=== PATIENT | female | born 1995 | race Caucasian/White ===

== ENCOUNTER 2023-04-09 00:15 | Day surgery (SDC) | payer BC, SELFPAY ==
[2023-04-02 13:45] VITALS: BMI 36.4
--- NOTE | 2023-04-02 14:10 | SUR.PREOP ---
Report to the Outpatient Waiting Room, entrance under the green pavilion located off [facility], at time 1115 on date 04/09/23. Planned Procedure Time: 1315. Time changes happen often and if your time is changed the preop area will call you the afternoon before. - You and your visitor will be asked to self-screen and do not enter if you have any COVID symptoms. - A mask is optional within the hospital at this time. Patients may have clear liquids (water, carbonated beverages, clear teas, apple juice) until 3 hours prior to surgery with a maximum of 20 ounces- 1015. - No food from midnight until time of surgery - Infants may have breast milk until 4 hours before surgery, formula 6 hours prior to surgery. - Children will be allowed to drink immediately following surgery. If applicable, please bring a bottle or sippy cup to assist with drinking. Juice, water, soda, and popsicles are readily available. For infants on formula, please bring formula the day of surgery. Pacifiers are allowed. Take the following medications with a SIP of water the morning of surgery: Zyprexa, Lorazepam PRN, Albuterol PRN DO NOT STOP ANY OF YOUR OTHER PRESCRIPTION MEDICATIONS PRIOR TO SURGERY ?EXCEPT THE FOLLOWING Medications to discontinue per physician N/A Please no make-up, nail estonian, hairspray, perfume, deodorant, or body powder the day of surgery. No jewelry (including any body piercings) or valuables the day of surgery, leave them at home. Please take a shower or bath the night before, or the morning of, surgery with an antibacterial soap. Wear comfortable, loose fitting clothing. Children are encouraged to wear pajamas. - Jewelry must be removed prior to entering the operating room. Rings and piercings that are not removed may be cut off. - The hospital will not accept responsibility for valuables. - Please leave all valuables, including medications, at home the day of surgery. If you are going home after surgery, a licensed charter and tour bus driver must drive you home. - NO public transportation without another adult if you receive anesthesia. - We recommend that an adult stay with you for 24 hours following discharge. - We also recommend that you do not drive, make important decision, drink alcoholic beverages, or take any drugs that were not prescribed by your health care provider for at least 24 hours after your discharge time. For Pediatric surgeries, we recommend two adults accompany the child home. Follow any additional instructions given to you from your surgeon. If you or anyone in your household have experienced Covid symptoms in the past week, please notify your surgeon or the nurse liaison at the phone number below for possible testing. Telephone instructions given to ____patient- Ariel and asked if any additional questions and then verbalized understanding. Patient advised to call surgeon office or pre surgery nurse liaison [phone] if any additional questions.
[2023-04-09] VITALS (11 sets, daily range): BP systolic 104–121; BP diastolic 52–85; PULSE 62–122; RESP 14–20; TEMP 36.1–36.2; O2SAT 95–100
--- NOTE | 2023-04-09 07:49 | WPDANESEPPF ---
Anes - Initial Pre Proc Eval Procedure: Operation Date: 04/09/23 13:15 Proposed Procedures p Diagnostic Laparoscopy with Bilateral Salpingectomy - Senait Marcelino DO Date/Time: 04/09/23 07:49 Surgeon: Senait Marcelino DO Pre Op Diagnosis: Desires Surgical Steritlity Patient Data Age: 27 Gender: F Height: 1.5 m Weight: 81.8 kg Allergies Allergy/AdvReac Type Severity Reaction Status Date / Time ibuprofen Allergy Severe Swelling Verified 04/09/23 11:30 of Lip/Tongue/Throat sumatriptan [From Imitrex] AdvReac Severe Other Verified 04/09/23 11:30 fentanyl AdvReac Unknown Hypotension Verified 04/09/23 11:30 Home Medications Medication Instructions Recorded Confirmed Type albuterol 90 mcg/actuation aerosol 90 mcg inhalation QID PRN Asthma 04/02/23 04/09/23 History inhaler exacerbation lorazepam 1 mg tablet 1 mg PO PRN PRN Anxiety 04/02/23 04/02/23 History olanzapine 5 mg tablet (Zyprexa) 30 mg PO DAILY 04/02/23 04/02/23 History Patient hx anesthesia problems: none Family hx anesthesia problems: none Results Review: All pre-operative results and documents have been reviewed as part of the pre-operative evaluation. [facility] Past Medical History Medical History (Updated 04/09/23 @ 07:49 by Jeff Priest DO) Anxiety Asthma Bipolar disorder Pancreatitis PTSD (post-traumatic stress disorder) Social History Social History Smoking packs per day: 1 Smoking cigarettes per day: 20.0 Years smoked: 10 Smoking pack-years: 10.00 Smoking status: Current every day smoker Tobacco type: e-cigarettes/vaping Alcohol intake: current Alcohol use details: very infrequently Substance use: former Substance use type: marijuana Living arrangements: with family Spiritual care concerns: No Anes - Eval Final PreProcedure Day of Procedure 04/09/23 07:49 Patient weight: obese Heart: regular rate and rhythm Lungs: clear to auscultation Airway: Mallampati scale class II and special considerations poor dentition Neurological: alert and oriented Last oral intake: >/= 8 hours ASA classification: III Emergent: no Anesthetic plan: proceed Anesthesia type and monitoring: general ETT and standard monitoring Results Review: All pre-operative results and documents have been reviewed as part of the pre-operative evaluation. Informed Consent: The patient's anesthetic plan and its attendant risks and benefits were discussed with the patient/family/POA. Questions were solicited and answers provided to the satisfaction of the patient/family/POA.
[2023-04-09] MEDS: ACETAMINOPHEN 500 MG TABLET 1000 MG PO (11:35)
[2023-04-09] MEDS: GABAPENTIN 300 MG CAPSULE PO (11:35)
[2023-04-09] MEDS: LACTATED RINGERS 1,000 ML 30 ML IV CONT ×2 (11:56→15:51)
--- NOTE | 2023-04-09 13:48 | WPDHPUPDATE1 ---
History and Physical Update Update Date/Time: 04/09/23 13:48 History and Physical has been reviewed, including an updated exam of the patient. There are NO changes in the patient's condition. Risks, benefits, and alternatives have been discussed and questions answered. Patient agrees to proceed with procedure.
--- NOTE | 2023-04-09 13:48 | PM.IMHP ---
H&P: HPI History of Present Illness Date/Time: 04/09/23 13:48 Chief Complaint: I'm having my tubes out Review of Systems Review of Systems: All systems reviewed & are unremarkable except as noted in HPI and below [facility] Past Medical History Medical History (Updated 04/09/23 @ 13:49 by Senait Marcelino DO) Anxiety Asthma Bipolar disorder Pancreatitis PTSD (post-traumatic stress disorder) Social History Social History Smoking packs per day: 1 Smoking cigarettes per day: 20.0 Years smoked: 10 Smoking pack-years: 10.00 Smoking status: Current every day smoker Tobacco type: e-cigarettes/vaping Alcohol intake: current Alcohol use details: very infrequently Substance use: former Substance use type: marijuana Living arrangements: with family Spiritual care concerns: No Meds Home Medications and Allergies Home Medications Medication Instructions Recorded Confirmed Type albuterol 90 mcg/actuation aerosol 90 mcg inhalation QID PRN Asthma 04/02/23 04/09/23 History inhaler exacerbation lorazepam 1 mg tablet 1 mg PO PRN PRN Anxiety 04/02/23 04/02/23 History olanzapine 5 mg tablet (Zyprexa) 30 mg PO DAILY 04/02/23 04/02/23 History Allergies Allergy/AdvReac Type Severity Reaction Status Date / Time ibuprofen Allergy Severe Swelling Verified 04/09/23 11:30 of Lip/Tongue/Throat sumatriptan [From Imitrex] AdvReac Severe Other Verified 04/09/23 11:30 fentanyl AdvReac Unknown Hypotension Verified 04/09/23 11:30 Vital Signs Vital Signs - 24 hr 04/09/23 11:53 Temperature 36.2 C L Pulse Rate 74 Respiratory Rate 16 Blood Pressure 104/64 Pulse Oximetry 100 Oxygen Delivery Room Air Exam Const: General: comfortable and no acute distress Eyes: General: appearance normal, both eyes and all related structures Neck: Neck: supple Resp: Effort & Inspection: normal respiratory effort Auscultation: clear to auscultation bilaterally Cardio: Rate: regular rate Rhythm: regular rhythm GI: GI Palp: Yes Soft to palpation Auscultation: normal bowel sounds Psych: Mental Status: mental status grossly normal Assessment and Plan Assessment and plan (1) Sterilization: Code(s): Z30.2 - Encounter for sterilization Status: Acute Quality VTE Prophylaxis VTE prophylaxis: mechanical ordered
--- NOTE | 2023-04-09 15:00 | W.PM.PROC2 ---
Procedure Note - Detailed Date of Procedure 04/09/23 Pre-op Diagnosis Desires Surgical Steritlity Post-op Diagnosis Same Procedure Performed Diagnostic laparoscopy, bilateral salpingectomy Surgeon Senait Marcelino, DO Anesthesia General Findings Normal appearing vulva and vaginal canal. Large cervix. Anteverted uterus. Uterus sounded to 8 cm. Internally, the pelvic organs were unremarkable except for a simple cyst on the left ovary and bilateral paratubal cysts. The bowels were unremarkable. Description of Procedure Patient was taken to the operating room where she was placed under general anesthesia. She was prepped and draped in the normal sterile fashion in the dorsal lithotomy position. No preoperative antibiotics were indicated. A time-out was performed. A speculum was placed in the vagina and the cervix was visualized. Posterior lip was grasped with a single-tooth tenaculum. The cervix was sequentially dilated to accommodate a manipulator. The uterus was sounded to 8 cm. The manipulator was placed, the speculum and tenaculum were removed. Gloves were changed and attention was then turned to the abdomen. The skin above the umbilicus was grasped with 2 penetrating towel clamps and injected with local. A small incision was made and a Veress needle was introduced. After saline water drop test was performed, the abdomen was insufflated to a filling pressure of 15 mmHg. The Veress needle was then replaced with a 5 mm trocar which was inserted. Survey of the abdomen revealed no evidence of bowel or vascular injury upon entry. The patient was then placed in steep Trendelenburg position. 5 mm trocar sites in the right and left lower quadrants were identified, injected and incised. Survey of the abdomen and pelvis revealed the above-mentioned findings. The right tube was elevated and was cauterized and transected off using the LigaSure. The specimen was passed off through the topographical field assistant port. The procedure was repeated in identical fashion on the left-hand side. Survey of the surgical pedicles revealed good hemostasis. The cyst on the left ovary was drained using the monopolar hook and clear fluid was found inside. The instruments and trocars were removed, the CO2 was allowed to escape. The abdominal incisions were closed with 4-0 Monocryl in a subcuticular fashion and covered with skin glue. Additional local was injected into the incision sites. The uterine manipulator was removed. The patient was taken to the recovery room in stable condition. All instrument and sponge counts were correct at the conclusion of the procedure. Estimated Blood Loss 5 Drains No Packing No Pathology Yes Complications No immediate complications Condition Stable Disposition PACU
[2023-04-09] MEDS: HYDROmorphone HCL INJ (*CRX) 1 MG/ML SYR 0.25 MG IV PUSH ×8 (15:13→15:48)
[2023-04-09] MEDS: ONDANSETRON INJ 4 MG/2 ML VIAL IV PUSH (15:21)
[2023-04-09] MEDS: oxyCODONE HCL (*CRX) 5 MG TAB IR PO (16:24)
== END 2023-04-09 17:09 | disposition home or self-care (01) ==
PROVIDERS: Visit Provider Obstetrics & Gynecology Gynecologic Oncology
PROC: (CPT 49320; principal; 2023-04-09 13:15)
DX: Z30.2 Encounter for sterilization (principal); N83.292 Other ovarian cyst, left side; N83.8 Other noninflammatory disorders of ovary, fallopian tube and broad ligament; J45.909 Unspecified asthma, uncomplicated; F31.9 Bipolar disorder, unspecified; F41.9 Anxiety disorder, unspecified; F43.10 Post-traumatic stress disorder, unspecified; Z79.51 Long term (current) use of inhaled steroids; F17.290 Nicotine dependence, other tobacco product, uncomplicated; E66.9 Obesity, unspecified; Z68.35 Body mass index [BMI] 35.0-35.9, adult
CPT/HCPCS: 58661; 88302; A9270; J1100; J1170; J2250; J2405; J2704; J3010; J7120